=== PATIENT | male | born 1965 | race Hispanic/Latino ===

== ENCOUNTER 2021-09-15 16:16 | Emergency (ER) | payer OTHER ==
[~2021-09-15 16:16] MED LIST: Iopamidol-370 76% 500 ML 1 ML ONE
[2021-09-15] MEDS ORDERED: Ondansetron PF 4 MG/2 ML Vial ONE (16:22)
[2021-09-15] MEDS ORDERED: Boostrix 0.5 ML (Tdap) VIAL ONE (16:22)
== END 2021-09-15 19:45 | disposition home or self-care (01) ==
LOC: ERS 16:16
DX: S42.012A Anterior displaced fracture of sternal end of left clavicle, initial encounter for closed fracture (principal); S22.32XA Fracture of one rib, left side, initial encounter for closed fracture; V49.9XXA Car occupant (driver) (passenger) injured in unspecified traffic accident, initial encounter
CPT/HCPCS: 70450; 71260; 72125; 74177; 90471; 90715; 96374; G0390; J2405; Q9967